=== PATIENT | male | born 1945 | race Caucasian/White ===

== ENCOUNTER → 2017-01-19 | Outpatient (CLI) | payer MEDICARE, BC ==
[~2017-01-19] MED LIST: ACET-732 PO; ASPI-558 PO; ATOR10TA20 PO; CALC-586 PO; CHOL200026 PO; CYCL-83 PO; DILT180C62 PO; FAMO20TA79 PO; FISH1CAP29 PO; FLUT16SP12 NS; IOHEXOL 180 MG/ML 20ml INJECTION ONE; LIDOCAINE 1% (10mg/ml) 5ml VIAL ONE; LISI-127 PO; MULT-806 PO; MethylPREDNISolone ACETATE 40mg/1ml ONE; NIAC500T74 PO; TAMS0.4C20 PO; TRAM50TA4 PO
--- NOTE | 2017-01-19 16:39 | DI ---
Indication:ITS.REASON: M54.5 LOW BACK PAIN; M54.20 Procedure:EPIDURAL INJ.SPINE W FLUO CATH LUMBAR EPIDURAL INJECTION: The patient has low back and radicular pain. The patient had a previous series of three lumbar epidural injections approximately nine months ago that resulted in excellent relief. The details of the procedure, including the benefits, risks, and alternatives were explained to the patient. All of their questions were answered. They stated that they understood and wished to proceed. Informed consent was then obtained. A pre-procedural timeout was performed to confirm the correct patient and procedure. Utilizing aseptic technique, local lidocaine anesthetic, and fluoroscopic guidance throughout, a 22-gauge spinal needle was directed into the lumbar epidural space via an interlaminar approach at the L5-S1 level. Contrast was injected to assure proper positioning of the needle tip. A fluoroscopic image was then taken and archived. Subsequently, 120 mg Depo-Medrol was injected into the epidural space. The patient tolerated the procedure well. IMPRESSION: Successful lumbar epidural steroid injection. Fluoroscopy dose: 29.42 mGy (Cumulative air kerma) Vicente Escalona RPA/ASHOK performed this under my personal supervision. .
== END ==
LOC: IMA 13:56
DX: M54.5 Low back pain (principal)
CPT/HCPCS: 62323; J1030; Q9965

== ENCOUNTER → 2017-03-13 | Outpatient (CLI) | payer MEDICARE, BC ==
--- NOTE | 2017-03-13 13:32 | DI ---
Indication:ITS.REASON: M54.5 BACK PAIN; M54.30 Sciatica, unspecified side Procedure:EPIDURAL INJ.SPINE W FLUO CATH LUMBAR EPIDURAL INJECTION: The patient has low back and radicular pain. The patient has had a previous epidural that provided excellent relief. The details of the procedure, including the benefits, risks, and alternatives were explained to the patient. All of their questions were answered. They stated that they understood and wished to proceed. Informed consent was then obtained. A pre-procedural timeout was performed to confirm the correct patient and procedure. Utilizing aseptic technique, local lidocaine anesthetic, and fluoroscopic guidance throughout, a 22-gauge spinal needle was directed into the lumbar epidural space via an interlaminar approach at the L5-S1 level. Contrast was injected to assure proper positioning of the needle tip. A fluoroscopic image was then taken and archived. Subsequently, 120 mg Depo-Medrol was injected into the epidural space. The patient tolerated the procedure well. IMPRESSION: Successful lumbar epidural steroid injection. Fluoroscopy dose: 25.44 mGy (Cumulative air kerma) Vicente Escalona RPA/ASHOK performed this under my personal supervision. .
== END ==
LOC: IMA 10:21
DX: M54.5 Low back pain (principal)
CPT/HCPCS: 62323; J1030; Q9965

== ENCOUNTER → 2017-03-22 | Outpatient (CLI) | payer MEDICARE, BC ==
[~2017-03-22] MED LIST changes: +GADOBUTROL 10mMol/10ml INJECTION IV ONE; -IOHEXOL 180 MG/ML 20ml INJECTION ONE; -LIDOCAINE 1% (10mg/ml) 5ml VIAL ONE; -MethylPREDNISolone ACETATE 40mg/1ml ONE; +SALINE FLUSH 10ml SYRINGE ONE
--- NOTE | 2017-03-22 11:05 | DI ---
Indication: ITS.REASON: M54.40 LUMBAGO SCIATICA; M54.5 LOW BACK PAIN PROCEDURE: MRI LUMBAR SPINE W/WO CONTRAST: Encounter: Initial Comparison: February 28, 2016 Technique: Multiplanar multisequence MR imaging of the lumbar spine was performed with and without contrast. Contrast: 9 mL Gadavist Findings: Alignment lumbar spine is stable with scoliosis. Degenerative endplate changes seen throughout the lumbar spine. No acute fracture identified. Conus medullaris terminates normally at L1. The paraspinal soft tissues show no acute findings. Presumed postoperative changes in the left upper abdomen. Left kidney is not seen. Segmental analysis: L1-L2: Disk osteophyte complex resulting in mild central canal narrowing. There is a right foraminal disk protrusion compressing the exiting right L1 nerve root with severe neural foraminal stenosis. Mild left neural foraminal stenosis. This is unchanged. L2-L3: Severe disk height loss. Posterior decompression. Degenerative facet disease. Left lateral and foraminal protrusion contributing to severe neural foraminal stenosis and impingement on the left L2 nerve root. There is mild neural foraminal narrowing on the right. This is unchanged. L3-L4: Severe disk height loss with a disk osteophyte complex. Posterior decompression. Narrowing of the lateral recesses with severe left neural foraminal stenosis and left L3 nerve root impingement. Severe right neural foraminal stenosis as well. This is unchanged. L4-L5: Posterior decompression. Right central and foraminal disk protrusion effacing the right lateral recess and causing severe right neural foraminal stenosis region on the exiting right L4 and traversing right L5 nerve roots. Severe left neural foraminal stenosis also at this level. This is similar to the prior exam. L5-S1: Mild degenerative facet disease with a small central bulge. No central canal stenosis. No significant neural foraminal stenosis. Postcontrast images show no areas of worrisome postcontrast enhancement. There is a small amount of expected epidural enhancement at the sites of prior surgery. Impression: Overall similar appearance of the lumbar spine with scoliosis and multilevel severe neural foraminal stenosis with multifocal nerve root impingement. .
== END ==
LOC: IMA 09:25
DX: M54.40 Lumbago with sciatica, unspecified side (principal); M41.9 Scoliosis, unspecified; M25.78 Osteophyte, vertebrae; M51.16 Intervertebral disc disorders with radiculopathy, lumbar region; M47.896 Other spondylosis, lumbar region
CPT/HCPCS: 72158; A9585